=== PATIENT | female | born 1935 | race Caucasian/White ===

== ENCOUNTER 2017-09-04 10:32 | Outpatient (CLI) | payer MEDICARE, OTHER ==
--- NOTE | 2017-09-04 13:16 | XRAY Report ---
TWO-VIEW CHEST: 09/04/2017 COMPARISON: None. INDICATION: Persistent lung sounds in the bases. TECHNIQUE: Two views of the chest. FINDINGS: There are diffuse increased interstitial markings of the lungs, with a predominance in the bases. No pneumothorax or pleural effusion. Cardiomegaly is noted. 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 UNDERLYING PROCESS SUCH PNEUMONIA IS NOT EXCLUDED. FOLLOWUP IS AVAILABLE. JOB #: [id number] EXT JOB #: [id number] [facility]
== END 2017-09-04 10:33 | disposition home or self-care (01) ==
LOC: DI.N 10:32
PROVIDERS: ATTEND Family Medicine
DX: J18.9 Pneumonia, unspecified organism (principal)
CPT/HCPCS: 71020

== ENCOUNTER 2017-09-26 09:22 | Outpatient (CLI) | payer MEDICARE, OTHER ==
[2017-09-26 09:43] LABS: CREATININE 0.9 mg/dL (0.4-1.0)
--- NOTE | 2017-09-30 11:47 | CT Report ---
DATE OF SERVICE: 09/26/2017 CT CHEST WITHOUT CONTRAST: 09/26/2017 CLINICAL INDICATION: Chronic cough, shortness of breath. COMPARISON: Chest x-ray 09/04/2017. TECHNIQUE: Axial prone inspiratory, supine inspiratory, supine expiratory images of the chest were o btained with 1 mm collimation every 20 mm, as well as conventional chest CT. In accordance with CT protocol optimization, one or more of the following dose reduction techniques w ere utilized for this exam: Automated exposure control, adjustment of mA and/or KV based on patient size , or use of iterative reconstructive technique. FINDINGS: The heart and great vessels demonstrate atherosclerotic calcifications. No hilar or media stinal lymphadenopathy is present. The lungs demonstrate peripheral fibrosis, with mild bronchiectasis. Im age quality is limited by respiratory motion. No significant air trapping is appreciated on expiratory i mages. No effusion or pneumothorax is present. Osseous structures demonstrate degenerative changes. Limite d evaluation of upper abdominal structures demonstrates normal adrenal glands. IMPRESSION: Peripheral fibrosis, with some bronchiectasis. TD: 09/26/2017 22:03
== END 2017-09-26 09:23 | disposition home or self-care (01) ==
LOC: DI 09:22
PROVIDERS: ATTEND Family Medicine
DX: J84.10 Pulmonary fibrosis, unspecified (principal); J47.9 Bronchiectasis, uncomplicated
CPT/HCPCS: 36415; 71250; 82565; 94010

== ENCOUNTER 2017-09-26 09:25 | Outpatient (CLI) | payer MEDICARE, OTHER | END 2017-09-26 09:26 | disposition home or self-care (01) | LOC: RT 09:25 | PROVIDERS: ATTEND Family Medicine | DX: J84.10 Pulmonary fibrosis, unspecified (principal) | CPT/HCPCS: 94010 ==

== ENCOUNTER 2019-02-15 10:25 | Outpatient (CLI) | payer MEDICARE, OTHER ==
--- NOTE | 2019-02-15 12:37 | XRAY Report ---
Reason: ACUTE ON CHRONIC L KNEE PAIN,SWOLLEN JONES CYST Procedure Date: 02/15/2019 Accession Number: [id number] / [id number] Procedure: XRN - Knee 3 View LT CPT Code: FULL RESULT: EXAM: LEFT KNEE RADIOGRAPHY, 3 VIEWS EXAM DATE: 02/15/2019 10:43 AM. CLINICAL HISTORY: Acute on chronic left knee pain , with swollen Jones cyst in an 83-year-old female. COMPARISON: None. TECHNIQUE: AP, lateral and sunrise views. FINDINGS: Bones: Minor hypertrophic changes of the tibial spines, patella and lateral margin of the tibial plateau. No fractures or bone lesions. Joints: Mild narrowing of the medial and patellofemoral joints. No subluxation. A small effusion suprapatellar bursa. No definite posterior effusion noted. Soft Tissues: Normal. No soft tissue swelling. IMPRESSION: Mild degenerative hypertrophic changes as described with probable small effusion in the suprapatellar bursa. No definite increased fluid in the Jones's cyst; however, follow-up evaluation with noncontrast MRI of the left knee may be useful for further assessment. RADIA
== END 2019-02-15 10:26 | disposition home or self-care (01) ==
LOC: DI.N 10:25
PROVIDERS: ATTEND Family Medicine
DX: M17.12 Unilateral primary osteoarthritis, left knee (principal)

== ENCOUNTER 2019-03-15 12:09 | Outpatient (CLI) | payer MEDICARE, OTHER ==
--- NOTE | 2019-03-16 12:23 | MRI Report ---
Reason: ACUTE CHRONIC L KNEE PAIN,SWELLING Procedure Date: 03/15/2019 Accession Number: [id number] / [id number] Procedure: MRI - Knee LT W/O CPT Code: FULL RESULT: EXAM: LEFT KNEE MRI WITHOUT CONTRAST EXAM DATE: 03/15/2019 12:59 PM. CLINICAL HISTORY: Acute chronic left knee pain, swelling. COMPARISON: None. TECHNIQUE: Multiplanar, multisequence T1-weighted and fluid-sensitive sequences of the knee without contrast. Other: None. FINDINGS: Bones: No fractures or subluxations. No marrow edema. No bone lesions. Articular Cartilage: Unremarkable. Medial Meniscus: Undersurface obliquely oriented tear posterior horn and mid body medial meniscus with a small focal parameniscal cyst on series 701 image 22. The cyst is about 6 mm. Lateral Meniscus: Intrameniscal signal seen anterior horn, there is a short superior surface anterior horn tear. No displaced fragment. Cruciate Ligaments: The anterior and posterior cruciate ligaments are intact. Collateral Ligaments: The medial collateral and lateral collateral ligamentous structures are intact. Tendons: The quadriceps, patellar, semimembranosus, and popliteus tendons are unremarkable. Musculature: No edema or fatty atrophy. Other: Trace joint effusion. Moderate sized popliteal cyst. No loose bodies. The medial and lateral retinacula are intact. Subcutaneous edema and swelling. IMPRESSION: 1. Undersurface obliquely oriented tear posterior horn mid body medial meniscus with a small focal parameniscal cyst. This measures about 6 mm. 2. There also is intrameniscal signal and a short superior surface tear of the anterior horn of the lateral meniscus. No displaced fragments. 3. Bones, articular surfaces, cruciates and collaterals appear unremarkable. Trace joint effusion. Moderate sized popliteal cyst. Some subcutaneous edema and swelling. RADIA
== END 2019-03-15 12:10 | disposition home or self-care (01) ==
LOC: DI 12:09
PROVIDERS: ATTEND Family Medicine
DX: S83.242A Other tear of medial meniscus, current injury, left knee, initial encounter (principal); S83.282A Other tear of lateral meniscus, current injury, left knee, initial encounter; M71.22 Synovial cyst of popliteal space [Baker], left knee; R60.0 Localized edema

== ENCOUNTER 2021-09-28 10:51 | Outpatient (CLI) | payer MEDICARE, OTHER | END 2021-09-28 10:52 | disposition short-term general hospital (02) | LOC: EMS 10:51 | DX: R06.01 Orthopnea (principal); R06.09 Other forms of dyspnea | CPT/HCPCS: A0425; A0429 ==

== ENCOUNTER 2021-10-09 16:49 | Outpatient (CLI) | payer MEDICARE, OTHER | END 2021-10-09 23:59 | disposition short-term general hospital (02) | LOC: EMS 16:49 | DX: R55 Syncope and collapse (principal); R19.7 Diarrhea, unspecified | CPT/HCPCS: A0425; A0427 ==

== ENCOUNTER 2023-09-21 10:07 | Emergency (ER) | payer MEDICARE, OTHER ==
[2023-09-21 10:36] VITALS: BP 129/64
[2023-09-21 10:54] VITALS: O2SAT 93
[2023-09-21 11:12] LABS: BASOPHILS % (AUTO) 0.3 %; EOSINOPHILS % (AUTO) 0.1 %; HCT - HEMATOCRIT 39.9 % (37.0-47.0); HGB - HEMOGLOBIN 13.5 g/dL (12.0-16.0); LYMPHOCYTES # (AUTO) 0.7 10^3/uL (1.5-3.5); LYMPHOCYTES % (AUTO) 6.4 %; MEAN CORPUSCULAR HEMOGLOBIN 31.8 pg (27.0-31.0); MEAN CORPUSCULAR HGB CONC 33.8 g/dL (32.0-36.0); MEAN CORPUSCULAR VOLUME 93.9 fL (81.0-99.0); MONOCYTES # (AUTO) 0.8 10^3/uL (0.0-1.0); MONOCYTES % (AUTO) 7.6 %; NEUTROPHILS # (AUTO) 8.7 10^3/uL (1.5-6.6); NEUTROPHILS % (AUTO) 85.4 %; PLT - PLATELET COUNT 159 10^3/uL (130-450); RED BLOOD COUNT 4.25 10^6/uL (4.20-5.40); RED CELL DISTRIBUTION WIDTH 13.2 % (12.0-15.0); WHITE BLOOD COUNT 10.1 x10^3/uL (4.8-10.8)
--- NOTE | 2023-09-21 11:22 | XRAY Report ---
PROCEDURE: Chest 1V INDICATIONS: Chest pain TECHNIQUE: One view of the chest was acquired. COMPARISON: 09/26/2017 FINDINGS: Surgical changes and devices: None. Lungs and pleura: Mildly prominent interstitium and possible mild lower lung opacities. Mediastinum: Normal heart size. Aortic calcifications. Bones and chest wall: Degenerative changes. IMPRESSION: Mild lower lung opacities and interstitial prominence, probably atelectasis and possible superimposed atypical infection. Consider future imaging surveillance to assess for resolution. Reviewed by: Rahul Suárez MD on 09/21/2023 11:21 AM PST Approved by: Rahul Suárez MD on 09/21/2023 11:21 AM PST Station ID: [id number]
--- NOTE | 2023-09-21 11:25 | ED Physician Documentation ---
History of Present Illness - Stated complaint Stated Complaint: WEAKNESS,SHAKES - Chief complaint Chief Complaint: General - History obtained from History obtained from: Patient - Additonal information Additional information: 88-year-old female with history of COPD, not on home oxygen (supposed to be on PRN O2, however refused when PCP recommended it) presents stating "I just feel awful". Numerous family members sick at home with similar symptoms. Patient reports feeling achy all over, generally unwell. Took Tylenol at home for symptoms without significant relief. Denies fevers. Review of Systems Constitutional: reports: Chills, Myalgias, Fatigue. denies: Fever Throat: reports: Sore throat. denies: Dental pain / toothache, Oral lesions / sores Respiratory: denies: Dyspnea, Cough, Wheezing GI: denies: Abdominal Pain, Nausea, Vomiting, Constipation, Diarrhea : denies: Dysuria, Frequency, Hesitancy Skin: denies: Rash, Lesions, Abrasion (s) Neurologic: reports: Generalized weakness. denies: Focal weakness, Numbness, Syncope, Seizure, Headache, Head injury PD PAST MEDICAL HISTORY - Past Medical History Past Medical History: Yes Respiratory: COPD - Past Surgical History Past Surgical History: No - Present Medications Home Medications: Ambulatory Orders Medication Instructions Recorded Confirmed Atorvastatin [Lipitor] 20 mg PO QPM 09/21/23 09/21/23 Metoprolol Succinate [Toprol Xl] 50 mg PO DAILY 09/21/23 09/21/23 Sertraline [Zoloft] 25 mg PO DAILY 09/21/23 09/21/23 - Allergies Allergies/Adverse Reactions: Allergies Allergy/AdvReac Type Severity Reaction Status Date / Time No Known Drug Allergies Allergy Verified 09/21/23 10:36 - Social History Does the pt smoke?: No Smoking Status: Never smoker PD ED PE NORMAL - Vitals Vital signs reviewed: Yes - General General: Alert and oriented X 3, No acute distress, Well developed/nourished - HEENT HEENT: Atraumatic, PERRL, EOMI - Neck Neck: Supple, no meningeal sign, No bony TTP, C-Spine cleared by NEXUS criteria - Cardiac Cardiac: RRR, Strong equal pulses - Respiratory Respiratory: No respiratory distress, Clear bilaterally - Abdomen Abdomen: Soft, Non tender, Non distended - Derm Derm: Normal color, Warm and dry, No rash - Extremities Extremities: No deformity, No tenderness to palpate, Normal ROM s pain, No edema - Neuro Neuro: Alert and oriented X 3, 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, No motor deficit - Psych Psych: Normal mood, Normal affect Results - Vitals Vitals: Vital Signs - 24 hr 09/21/23 09/21/23 10:33 10:51 Temperature 37.4 C Heart Rate 115 H Respiratory 22 Rate Blood Pressure 129/64 O2 Saturation 93 Oxygen O2 Source Room air - Labs Labs: Laboratory Tests 09/21/23 09/21/23 09/21/23 10:40 11:06 11:06 WBC 10.1 RBC 4.25 Hgb 13.5 Hct 39.9 MCV 93.9 MCH 31.8 H MCHC 33.8 RDW 13.2 Plt Count 159 MPV 10.0 Neut # (Auto) 8.7 H Lymph # (Auto) 0.7 L [place] # (Auto) 0.8 Eos # (Auto) 0.0 Baso # (Auto) 0.0 Absolute Nucleated RBC 0.00 Nucleated RBC % 0.0 Sodium 136 Potassium 3.8 Chloride 103 Carbon Dioxide 24 Anion Gap 9.0 BUN 16 Creatinine 0.9 Estimated GFR (MDRD) 59 L Glucose 132 H Calcium 9.7 Total Bilirubin 0.8 AST 17 ALT 11 Alkaline Phosphatase 74 Troponin I High Sens 7.0 Total Protein 7.5 Albumin 4.1 Globulin 3.4 Albumin/Globulin Ratio 1.2 Lipase 11 Nasal Adenovirus (PCR) NOT DETECTED Nasal B. parapertussis DNA (PCR) NOT DETECTED Nasal Coronavir 229E PCR NOT DETECTED Nasal Coronavir HKU1 PCR NOT DETECTED Nasal Coronavir NL63 PCR NOT DETECTED Nasal Coronavir OC43 PCR NOT DETECTED Nasal Enterovir/Rhinovir PCR NOT DETECTED Nasal Influenza B PCR NOT DETECTED Nasal Influenza A PCR NOT DETECTED Nasal Parainfluen 1 PCR NOT DETECTED Nasal Parainfluen 2 PCR NOT DETECTED Nasal Parainfluen 3 PCR NOT DETECTED Nasal Parainfluen 4 PCR NOT DETECTED Nasal RSV (PCR) NOT DETECTED Nasal B.pertussis DNA PCR NOT DETECTED Nasal C.pneumoniae (PCR) NOT DETECTED Sunny Human Metapneumo PCR NOT DETECTED Nasal M.pneumoniae (PCR) NOT DETECTED Nasal SARS-CoV-2 (PCR) DETECTED A PD Medical Decision Making - ED course Complexity details: reviewed old records, reviewed results, re-evaluated patient , considered differential, d/w patient ED course: Nontoxic-appearing patient with generalized symptoms that are consistent with viral syndrome, especially when considering that numerous other family members are sick with similar symptoms. Vitals are reviewed, triage pulse was tachycardic, however when resting comfortably in bed patient's pulses normal sinus rhythm and not tachycardic. Laboratory work is reviewed, no significant abnormalities identified. Patient did test positive for COVID-19. Chest x-ray shows atelectasis versus inflammatory changes at the bases, on auscultation lungs are clear bilaterally, patient denies dyspnea, saturating appropriately on room air for patient with COPD. Patient informed of diagnosis as well as supportive measures to take at home. Departure - Departure Disposition: Home, Self Care Condition: Stable Instructions: ED Viral Syndrome, COVID-19 [facility] Comments: Take Tylenol and Motrin as needed for symptoms. Drink plenty of fluids, get plenty of rest. If you have difficulty breathing, are unable to keep fluids down, or feel that you need repeat evaluation please come back to the emergency department for another assessment. Forms: PCP List Discharge Date/Time: 09/21/23 12:04
[2023-09-21 11:29] LABS: ALBUMIN 4.1 g/dL (3.2-5.5); ALBUMIN/GLOBULIN RATIO 1.2 (1.0-2.2); BILIRUBIN,TOTAL 0.8 mg/dL (0.2-1.0); CALCIUM 9.7 mg/dL (8.5-10.3); CREATININE 0.9 mg/dL (0.6-1.3); POTASSIUM 3.8 mmol/L (3.5-4.5); TOTAL PROTEIN 7.5 g/dL (6.4-8.9)
[2023-09-21] MEDS ORDERED: SODIUM CHLORIDE 0.9% 1,000 ML IV STA (11:32)
[2023-09-21 11:40] LABS: B. PARAPERTUSSIS- RESP PCR PAN NOT DETECTED; B. PERTUSSIS- RESP PCR PANEL NOT DETECTED; C. PNEUMONIAE- RESP PCR PANEL NOT DETECTED; CORONAVIRUS 229E-RESP PCR NOT DETECTED; CORONAVIRUS HKU1-RESP PCR NOT DETECTED; CORONAVIRUS NL63-RESP PCR NOT DETECTED; CORONAVIRUS OC43-RESP PCR NOT DETECTED; HUMAN METAPNEUMOVIRUS NOT DETECTED; INFLUENZA A- RESP PCR PANEL NOT DETECTED; INFLUENZA B - RESP PCR PANEL NOT DETECTED; M. PNEUMONIAE- RESP PCR PANEL NOT DETECTED; PARAINFLUENZA VIRUS 1 NOT DETECTED; PARAINFLUENZA VIRUS 2 NOT DETECTED; PARAINFLUENZA VIRUS 3 NOT DETECTED; PARAINFLUENZA VIRUS 4 NOT DETECTED; RHINOVIRUS/ENTEROVIRUS NOT DETECTED; RSV- RESP PCR PANEL NOT DETECTED
[2023-09-21 11:42] LABS: SARS-CoV-2 -RESP PCR PANEL DETECTED
== END 2023-09-21 12:04 | disposition home or self-care (01) ==
LOC: ED 10:07
DX: U07.1 COVID-19 (principal)
CPT/HCPCS: 36415; 80053; 83690; 84484; 85025; 87633; 93005; 99283; 99284